=== PATIENT | female | born 1935 | race Caucasian/White ===

== ENCOUNTER 2017-11-29 12:12 | Observation (INO) ==
[2017-11-29] MEDS ORDERED: Ipratropium/Albuterol Neb 3 ML IH ONE (12:44)
[2017-11-29] MEDS ORDERED: Benzonatate 100 MG CAPSULE PO STA (12:45)
--- NOTE | 2017-11-29 12:46 | Emergency Department Note ---
Disposition Clinical Impression: CHF (congestive heart failure) Qualifiers: Heart failure type: diastolic Heart failure chronicity: acute Qualified Code(s) : I50.31 - Acute diastolic (congestive) heart failure Disposition: Admitted As Inpatient Time of Disposition: 14:00 (Dr Frazier) SOB HPI - General Chief Complaint: ED General Medical Stated Complaint: Shortness of breath, throat hurts Time Seen by Provider: 11/29/17 12:29 Source: patient Mode of arrival: ambulatory Limitations: no limitations Nursing Notes Reviewed: Yes Vital Signs Reviewed: Yes - History of Present Illness Pt Subjective Complaint: shortness of breath Onset (ago): day(s) (3) Context: occurred during exertion Severity: moderate Consistency/Duration: gradually worsening Improves with: rest Worsens with: exertion, movement, coughing Known history of: congestive heart failure (remote) Associated symptoms: Reports: fever, cough, wheezing, sputum production. Denies : chest pain, pain with inspiration, orthopnea, lower extremity pain, polyuria, polydipsia, parasthesias, palpitations, hemoptysis, diaphoresis, nausea/vomiting , syncope, abdominal pain, rash, sense of impending doom Treatment prior to arrival: none Cough present: Yes Cough Description: Involuntary Cough Frequency: Intermittent Sputum production: Yes Sputum Amount: Scant Sputum Color: White, Yellow, Green - Related Data Home oxygen amount: none Home Medications Medication Instructions Recorded Confirmed Ascorbate Calcium [Vitamin C] 500 mg PO AD 04/30/17 11/29/17 Aspirin [Lo-Dose Aspirin EC] 81 mg PO DAILY 04/30/17 11/29/17 Atorvastatin [Lipitor] 40 mg PO DAILY 04/30/17 11/29/17 Estrogens, Conjugated [Premarin] 0.9 mg PO AD 04/30/17 11/29/17 Gabapentin [Neurontin] 300 mg PO TID 04/30/17 11/29/17 Irbesartan [Avapro] 150 mg PO DAILY 04/30/17 11/29/17 Levothyroxine [Synthroid] 50 mcg PO DAILY 04/30/17 11/29/17 Metoprolol [Lopressor] 20 mg PO BID 04/30/17 09/03/17 Multivit-Min/FA/Lycopen/Lutein 1 each PO DAILY 04/30/17 11/29/17 [Centrum Silver Tablet] Omeprazole [PriLOSEC] 40 mg PO DAILY 04/30/17 09/03/17 Turm/Ging/Curtis/Yuc/Huy/Elvira/Hor 1 each PO DAILY 04/30/17 11/29/17 [Tumersaid Tablet] predniSONE [PredniSONE] 10 mg PO DAILY 04/30/17 11/29/17 Furosemide [Lasix] 20 mg PO DAILY 11/29/17 11/29/17 Pantoprazole Sodium [Pantoprazole 40 mg PO DAILY 11/29/17 11/29/17 Sodium] Previous Rx's Medication Instructions Recorded HYDROcodone/Acet 5/325 mg [[place] 1 tab PO Q6H #10 tab 04/30/17 5-325 mg] Allergies Allergy/AdvReac Type Severity Reaction Status Date / Time latex AdvReac See Verified 09/03/17 10:49 Comments Bandaids AdvReac Rash Uncoded 09/03/17 10:49 All systems ED: reviewed and negative except as stated. Review of Systems: As Per HPI Past Medical History - Past Medical History Medical history: Reports: GERD, hyperlipidemia, hypertension, myocardial infarction, thyroid disease Psychiatric history: Reports: no psych history - Social History Smoking Status: Former smoker Smokeless Tobacco Status: No Alcohol use: Reports: none Drug use: Reports: none Physical Exam - General Limitations: no limitations General appearance: alert - Head Head exam: atraumatic, normocephalic, normal inspection - Eye Eye exam: Present: normal appearance, PERRL, EOMI - ENT ENT exam: normal exam, normal oropharynx, mucous membranes moist - Neck Neck exam: Present: normal inspection, full ROM, trachea midline - Expanded Neck Exam Neck exam focused ED: Absent: JVD, carotid bruit - Chest Chest inspection: Present: normal inspection, symmetric chest wall rise - Respiratory Respiratory exam: Present: prolonged expiratory phase. Absent: wheezes - Expanded Respiratory Exam Location: wheezes: Lower, Right, Left - Cardiovascular Cardiovascular exam: Present: regular rate, normal rhythm, normal heart sounds - Abdominal Exam Abdominal exam: Present: soft, Non-Tender. Absent: tenderness, distention, guarding, rebound, rigidity - Extremities Exam Extremities exam: Present: normal inspection, full ROM, pedal edema. Absent: tenderness - Neurological Exam Neurological exam: Present: alert, oriented X3 - Psychiatric Psychiatric exam: Present: normal affect, normal mood - Skin Skin exam: Present: warm, dry, intact, normal color Course Vital Signs Temperature 98.4 F 11/29/17 12:13 Pulse Rate 92 11/29/17 12:13 Respiratory Rate 18 11/29/17 12:13 Blood Pressure 151/106 11/29/17 12:13 O2 Sat by Pulse Oximetry 89 11/29/17 12:13 Temperature 99.1 F 11/30/17 06:51 Pulse Rate 89 11/30/17 06:51 Respiratory Rate 16 11/30/17 06:51 Blood Pressure 144/75 11/30/17 06:51 O2 Sat by Pulse Oximetry 93 11/30/17 06:51 Oxygen Delivery Oxygen Delivery Room Air Shortness of Breath/Dyspnea - Differential Diagnosis Likely: acute exacerbation of chronic obstructive airways disease, congestive heart failure, pneumonia. Unlikely: asthma with exacerbation, pulmonary embolism, pneumothorax - Medical Records Medical records reviewed: Yes I reviewed the patient's medical records. - Lab Data Lab results reviewed: Yes I reviewed the patient's lab results. Result diagrams: 11/30/17 05:15 11/30/17 05:15 Lab Results 11/29/17 11/29/17 11/29/17 Range/Units 12:51 12:51 12:51 WBC 8.4 (4.3-11.1) K/mcL RBC 3.95 (3.82-4.97) M/mcL Hgb 13.1 (11.5-15.4) g/dL Hct 40.2 (35.3-44.9) % MCV 101.8 H (83.0-100.0) fL MCH 33.2 (28.0-33.3) pg MCHC 32.6 (31.6-35.5) g/dL RDW 14.2 (11.5-14.5) % Plt Count 147 (140-400) K/mcL MPV 10.9 (9.4-12.4) fL Immature Gran % 0.6 (0-4) % Seg Neutrophils % 82.1 % Lymphocytes % 6.5 % Monocytes % 8.5 % Eosinophils % 1.8 % Basophils % 0.5 % Neutrophils # 6.9 (1.6-8.9) K/mcL Lymphocytes # 0.6 (0.6-4.6) K/mcL Monocytes # 0.7 (0.0-1.3) K/mcL Eosinophils # 0.2 (0.0-0.6) K/mcL Basophils # 0.0 (0.0-0.2) K/mcL Sodium 138 (136-145) mEq/L Potassium 4.0 (3.5-5.1) mEq/L Chloride 101 (98-107) mEq/L Carbon Dioxide 30 H (23-29) mEq/L BUN 14 (8-23) mg/dL Creatinine 0.75 (0.60-1.20) mg/dL Est GFR ( Amer) > 60 (> 60) Est GFR (Non-Af Amer) > 60 (> 60) BUN/Creatinine Ratio 19 (6-26) Glucose 184 H (70-105) mg/dL Calculated Osmolality 291 (280-300) Calcium 8.2 L (8.6-10.3) mg/dL Magnesium (1.6-2.6) mg/dL Troponin I 0.03 (< 0.04) ng/mL B-Natriuretic Peptide 735 H (Less than 100) pg/mL TSH (0.340-5.600) mcIU/mL 11/29/17 Range/Units 12:53 WBC (4.3-11.1) K/mcL RBC (3.82-4.97) M/mcL Hgb (11.5-15.4) g/dL Hct (35.3-44.9) % MCV (83.0-100.0) fL MCH (28.0-33.3) pg MCHC (31.6-35.5) g/dL RDW (11.5-14.5) % Plt Count (140-400) K/mcL MPV (9.4-12.4) fL Immature Gran % (0-4) % Seg Neutrophils % % Lymphocytes % % Monocytes % % Eosinophils % % Basophils % % Neutrophils # (1.6-8.9) K/mcL Lymphocytes # (0.6-4.6) K/mcL Monocytes # (0.0-1.3) K/mcL Eosinophils # (0.0-0.6) K/mcL Basophils # (0.0-0.2) K/mcL Sodium (136-145) mEq/L Potassium (3.5-5.1) mEq/L Chloride (98-107) mEq/L Carbon Dioxide (23-29) mEq/L BUN (8-23) mg/dL Creatinine (0.60-1.20) mg/dL Est GFR ( Amer) (> 60) Est GFR (Non-Af Amer) (> 60) BUN/Creatinine Ratio (6-26) Glucose (70-105) mg/dL Calculated Osmolality (280-300) Calcium (8.6-10.3) mg/dL Magnesium 1.7 (1.6-2.6) mg/dL Troponin I (< 0.04) ng/mL B-Natriuretic Peptide (Less than 100) pg/mL TSH 1.877 (0.340-5.600) mcIU/mL - Radiology Data Radiology results reviewed: Yes I reviewed the patient's radiology results. Chest X-Ray 11/29/17 12:44 IMPRESSION: Mild linear atelectasis versus scar in the right base. No acute process or significant interval change. D/ / Yuli Morales MD / Yuli oMrales MD Interpreting Provider: Yuli Morales MD - EKG Data Rate: Reports: normal Rhythm: Reports: NSR [place]/QRS: Reports: normal Interpretation: Reports: normal EKG, nonspecific ST-T wave changes
[2017-11-29 12:59] LABS: Basophils % 0.5 %; Eosinophils # 0.2 K/mcL (0.0-0.6); Eosinophils % 1.8 %; Hematocrit 40.2 % (35.3-44.9); Hemoglobin 13.1 g/dL (11.5-15.4); Immature Granulocytes % 0.6 % (0-4); Lymphocytes # 0.6 K/mcL (0.6-4.6); Lymphocytes % 6.5 %; Mean Corpuscular HGB Conc 32.6 g/dL (31.6-35.5); Mean Corpuscular Hemoglobin 33.2 pg (28.0-33.3); Mean Corpuscular Volume 101.8 fL (83.0-100.0); Mean Platelet Volume 10.9 fL (9.4-12.4); Monocytes # 0.7 K/mcL (0.0-1.3); Monocytes % 8.5 %; Neutrophils # 6.9 K/mcL (1.6-8.9); Platelet Count 147 K/mcL (140-400); Red Blood Count 3.95 M/mcL (3.82-4.97); Red Cell Distribution Width 14.2 % (11.5-14.5); Segmented Neutrophils % 82.1 %
[2017-11-29 13:14] LABS: BUN/Creatinine Ratio 19 (6-26); Blood Urea Nitrogen 14 mg/dL (8-23); Calcium 8.2 mg/dL (8.6-10.3); Carbon Dioxide 30 mEq/L (23-29); Chloride 101 mEq/L (98-107); Glucose 184 mg/dL (70-105); Osmolality,Calculated 291 (280-300); Sodium 138 mEq/L (136-145); eGFR For Non-African Americans > 60 (> 60)
[2017-11-29 13:15] LABS: Magnesium 1.7 mg/dL (1.6-2.6)
[2017-11-29 13:17] LABS: Troponin I 0.03 ng/mL (< 0.04)
[2017-11-29 13:32] LABS: Thyroid Stimulating Hormone 1.877 mcIU/mL (0.340-5.600)
[2017-11-29] MEDS ORDERED: cefTRIAXone 2,000 MG in 0.9 % Sodium Chloride Mini Bag 100 ML IVPB ONE (14:02)
[2017-11-29] MEDS ORDERED: Ketorolac 30 MG/ML VIAL IVP PRN (15:25)
[2017-11-29] MEDS ORDERED: Ondansetron 4 MG/2 ML VIAL IVP PRN (15:25)
[2017-11-29] MEDS ORDERED: *HR* HYDROcodone/Acet 5/325 mg TABLET PO SCH (15:25)
[2017-11-29] MEDS ORDERED: Ibuprofen 400 MG TABLET PO PRN (15:25)
[2017-11-29] MEDS ORDERED: NON-FORMULARY MEDICATION 1 EACH EACH (Ascorbate Calcium [Vitamin C] 500 MG) PO SCH (15:25)
[2017-11-29] MEDS ORDERED: Acetaminophen 325 MG TABLET PO PRN (15:25)
[2017-11-29] MEDS ORDERED: Naloxone 0.4 MG/ML INJ IVP PRN (15:25)
--- NOTE | 2017-11-29 15:40 | Electrocardiograph Report ---
[address] [address] Test Date: 2017-11-29 Pat Name: Ronna Nguyen Department: [id number] Room: [facility] Gender: F String Top Sealer: [id number] : 1935 Requested By: Adarsh Montes De Oca Order Number: [id number] Reading MD: Monroe Quevedo Measurements Intervals [place] Rate: 80 P: [place]: 0 QRS: 75 QRSD: 86 T: 115 QT: 391 QTc: 427 Interpretive Statements SINUS RHYTHM, PACS NONSPECIFIC T-WAVE ABNORMALITY ABNORMAL RHYTHM ECG Electronically Signed On 11-29-2017 15:38:55 EDT by Monroe Quevedo
--- NOTE | 2017-11-29 16:08 | Internal Med History&Physical ---
Date of Encounter: 11/29/17 Time of Encounter: 15:35 Assessment and Plan (1) Dyspnea Current visit: Yes Status: Acute Suspect multifactorial etiology with acute bronchitis and underlying diastolic heart failure. Will give IV diuretic and increase dose of metoprolol. Continue Avapro. Qualifiers: Dyspnea type: shortness of breath Qualified Code(s): R06.02 - Shortness of breath; R06.00 - Dyspnea, unspecified; R06.01 - Orthopnea (2) Hypertension Current visit: Yes Status: Chronic Continue Lopressor at higher dose. Continue Avapro. Qualifiers: Hypertension type: essential hypertension Qualified Code(s): I10 - Essential (primary) hypertension (3) Temporal arteritis Current visit: Yes Status: Acute Continue prednisone (4) Peripheral neuropathy Current visit: Yes Status: Acute TSH was normal in emergency room. Check B12 and folate levels in a.m. Qualifiers: Peripheral neuropathy type: polyneuropathy, unspecified Qualified Code(s): G62.9 - Polyneuropathy, unspecified (5) Hypothyroidism Current visit: Yes Status: Chronic TSH was normal at 1.877. Continue present dose Synthroid. Qualifiers: Hypothyroidism type: unspecified Qualified Code(s): E03.9 - Hypothyroidism , unspecified (6) Hyperlipidemia Current visit: Yes Status: Chronic Continue atorvastatin. Qualifiers: Hyperlipidemia type: unspecified Qualified Code(s): E78.5 - Hyperlipidemia , unspecified (7) Macrocytosis Current visit: Yes Status: Acute MCV was normal at 94.8 on 06/11/2017. Will check LFTs, TSH, and folate levels in a.m. TSH was normal on today's labs. Internal Medicine - H&P: HPI Chief complaint: Dyspnea Admitted From: Emergency Dept Plans for Post Hospital Care: Home History of present illness: Ms. Nguyen is a 82 year old female who came to emergency room stating she had onset of sore throat 11/26/2017 with gradual dyspnea. She reports cough productive of green/yellow sputum. Denies vomiting or diarrhea. When she did not improve she came to emergency room this morning. She was evaluated and admitted to [facility] floor for ongoing care needs. Her respiratory history is significant for having quit smoking over 40 years ago. She denies diagnosis of COPD or chronic lung disease. Past Med Surg Social Fam HX - Past Medical History Medical history: GERD, hyperlipidemia, hypertension, myocardial infarction, thyroid disease Psychiatric history: no psych history - Social History Smoking Status: Former smoker Smokeless Tobacco Status: No Alcohol use: none Drug use: none Internal Medicine - H&P: Meds Ascorbate Calcium [Vitamin C] 500 mg PO AD 04/30/17 [History] Aspirin [Lo-Dose Aspirin EC] 81 mg PO DAILY 04/30/17 [History] Atorvastatin [Lipitor] 40 mg PO DAILY 04/30/17 [History] Estrogens, Conjugated [Premarin] 0.9 mg PO AD 04/30/17 [History] Gabapentin [Neurontin] 300 mg PO TID 04/30/17 [History] HYDROcodone/Acet 5/325 mg [[place] 5-325 mg] 1 tab PO Q6H #10 tab 04/30/17 [Rx] Irbesartan [Avapro] 150 mg PO DAILY 04/30/17 [History] Levothyroxine [Synthroid] 50 mcg PO DAILY 04/30/17 [History] Metoprolol [Lopressor] 20 mg PO BID 04/30/17 [History] Multivit-Min/FA/Lycopen/Lutein [Centrum Silver Tablet] 1 each PO DAILY 04/30/17 [History] Omeprazole [PriLOSEC] 40 mg PO DAILY 04/30/17 [History] Turm/Ging/Curtis/Yuc/Huy/Elvira/Hor [Tumersaid Tablet] 1 each PO DAILY 04/30/17 [ History] predniSONE [PredniSONE] 10 mg PO DAILY 04/30/17 [History] Furosemide [Lasix] 20 mg PO DAILY 11/29/17 [History] Pantoprazole Sodium [Pantoprazole Sodium] 40 mg PO DAILY 11/29/17 [History] 3 Allergy/AdvReac Type Severity Reaction Status Date / Time latex AdvReac See Verified 09/03/17 10:49 Comments Bandaids AdvReac Rash Uncoded 09/03/17 10:49 All Systems PM: A 10-system review of systems was performed and is negative for pertinent findings except as documented above in the HPI. Review of systems: Gen.: She states her weight has been stable the past few months Cardiovascular: She has history of hypertension and claims SD April 2015. She has a diagnosis of temporal arteritis and is on prednisone. Dose was decreased approximately one year ago from 20 mg daily to 10 mg daily. She reports DVT over 30 years ago without recurrence. She denies pulmonary embolus. Echocardiogram 10/01/2017 showed LVEF of 60% with reported mild LV diastolic dysfunction. The E/A ratio was 0.8. There was mild to moderate mitral regurgitation and tricuspid regurgitation. There was mild pulmonary hypertension with estimated RVSP 37 mmHg. There was asymmetric basal septal hypertrophy of 1.50 cm without LVOT obstruction. Respiratory: As per history of present illness GI: She has had cholecystectomy. She has GERD. She denies disorders of her liver or exocrine pancreas : She denies hematuria dysuria or kidney stones Neurologic: She denies large distribution strokes or seizures. She has peripheral neuropathy. Endocrine: She denies diabetes. She has hypothyroidism and hyperlipidemia. Hematology/oncology: She denies blood disorders cancers or anemia. Psychiatric: She denies anxiety depression or other mental health issues. [place] skeletal: She has DJD but denies gout or other bone joint or muscle disorders. - Constitutional Vitals: Temp Pulse Resp BP Pulse Ox 98.4 F 92 21 153/85 90 11/29/17 12:33 11/29/17 14:37 11/29/17 14:37 11/29/17 14:37 11/29/17 14:37 Exam: Gen.: She is a well-developed overweight female lying in bed who appears slightly dyspneic. HEENT: Head is atraumatic and normocephalic. Eyes: EOMI. There is no scleral icterus. Mouth: Mucosa is moist. Neck: Supple and nontender. There is no thyromegaly or adenopathy noted. Heart: Regular without murmurs gallops or ectopics Lungs: No wheezes or crackles are heard. Abdomen: Soft and nontender. No masses or guarding are noted. Extremities: She has trace to 1+ pitting edema bilaterally of the dorsal feet and lower anterior shins. She has slight woody edema present also. Neurologic: Mental status: She is talkative and a good historian. Cranial nerves: Smile is symmetric. Forehead wrinkles bilaterally. Tongue protrudes midline. EOMI. Motor: There is no pronator drift. Cerebellar: Finger to nose is intact bilaterally. Skin: Warm and dry Internal Med - H&P Results - Labs CBC & Chem 7: 11/29/17 12:51 11/29/17 12:51
[2017-11-29] MEDS ORDERED: Furosemide 40 MG in 0.9 % Sodium Chloride 50 ML IVPB ONE (16:30)
[2017-11-29] MEDS: Gabapentin 300 MG CAPSULE PO SCH ×2 (16:54→21:11)
[2017-11-29] MEDS ORDERED: *HR* HYDROcodone/Acet 5/325 mg TABLET PO PRN (19:10)
[2017-11-29] MEDS: Budesonide/Formoterol 160/4.5 MDI IH SCH ×2 (21:37)
[2017-11-30 06:20] LABS: Basophils % 0.4 %; Eosinophils # 0.2 K/mcL (0.0-0.6); Eosinophils % 3.2 %; Hematocrit 40.8 % (35.3-44.9); Hemoglobin 13.3 g/dL (11.5-15.4); Immature Granulocytes % 0.4 % (0-4); Lymphocytes # 1.3 K/mcL (0.6-4.6); Lymphocytes % 18.3 %; Mean Corpuscular HGB Conc 32.6 g/dL (31.6-35.5); Mean Corpuscular Hemoglobin 32.9 pg (28.0-33.3); Mean Platelet Volume 11.6 fL (9.4-12.4); Monocytes # 0.8 K/mcL (0.0-1.3); Monocytes % 11.9 %; Neutrophils # 4.5 K/mcL (1.6-8.9); Nucleated Red Blood Cells 0.3 /100 WBC (0); Platelet Count 124 K/mcL (140-400); Red Blood Count 4.04 M/mcL (3.82-4.97); Red Cell Distribution Width 14.2 % (11.5-14.5); Segmented Neutrophils % 65.8 %
[2017-11-30 06:30] LABS: Alanine Aminotransferase 20 Units/L (7-52); Albumin 3.4 g/dL (3.5-5.7); Albumin/Globulin Ratio 1.5 (1.1-2.2); Alkaline Phosphatase 49 Units/L (34-104); Aspartate Amino Transferase 19 Units/L (13-39); BUN/Creatinine Ratio 14 (6-26); Bilirubin,Total 0.5 mg/dL (0.3-1.0); Blood Urea Nitrogen 10 mg/dL (8-23); Calcium 8.2 mg/dL (8.6-10.3); Carbon Dioxide 32 mEq/L (23-29); Chloride 101 mEq/L (98-107); Globulin 2.3 g/dL (2.4-3.5); Glucose 106 mg/dL (70-105); Osmolality,Calculated 289 (280-300); Potassium 3.6 mEq/L (3.5-5.1); Sodium 140 mEq/L (136-145); Total Protein 5.7 g/dL (6.4-8.9); eGFR For Non-African Americans > 60 (> 60)
[2017-11-30 06:53] VITALS: BP 144/75
[2017-11-30] MEDS ORDERED: Aspirin Enteric Coated 81 MG Tablet PO SCH (09:00)
[2017-11-30] MEDS ORDERED: predniSONE 10 MG TABLET PO SCH (09:00)
[2017-11-30] MEDS ORDERED: Multivit/Ca/Min/Fe/FA 1 TAB TABLET PO SCH (09:00)
[2017-11-30] MEDS ORDERED: Furosemide 20 MG TABLET PO SCH ×2 (09:00)
[2017-11-30 09:23] LABS: Vitamin B12 420 pg/mL (250-1100)
[2017-11-30 09:34] LABS: Folate > 22.3 ng/mL (3.0-16.0)
[2017-11-30] MEDS ORDERED: Albuterol 2.5 MG/3 ML NEBULIZER IH PRN (09:41)
[2017-11-30] MEDS: Gabapentin 300 MG CAPSULE PO SCH (09:50)
--- NOTE | 2017-11-30 10:08 | Discharge Summary ---
Date of Encounter: 11/30/17 Time of Encounter: 10:00 - Discharge Diagnosis (1) Acute bronchitis Priority: Primary Status: Acute Qualifiers: Bronchitis organism: unspecified organism Qualified Code(s): J20.9 - Acute bronchitis, unspecified (2) CHF (congestive heart failure) Priority: Secondary Status: Chronic Qualifiers: Heart failure type: diastolic Heart failure chronicity: chronic Qualified Code(s): I50.32 - Chronic diastolic (congestive) heart failure (3) Hypertension Priority: Secondary Status: Chronic Qualifiers: Hypertension type: essential hypertension Qualified Code(s): I10 - Essential (primary) hypertension (4) Temporal arteritis Priority: Secondary Status: Chronic (5) Peripheral neuropathy Priority: Secondary Status: Chronic Qualifiers: Peripheral neuropathy type: polyneuropathy, unspecified Qualified Code(s): G62.9 - Polyneuropathy, unspecified (6) Hypothyroidism Priority: Secondary Status: Chronic Qualifiers: Hypothyroidism type: unspecified Qualified Code(s): E03.9 - Hypothyroidism , unspecified (7) Hyperlipidemia Priority: Secondary Status: Chronic Qualifiers: Hyperlipidemia type: unspecified Qualified Code(s): E78.5 - Hyperlipidemia , unspecified (8) Macrocytosis Priority: Secondary Status: Acute Hospital course: Ms. Nguyen is a 82 year old female who came to emergency room stating she had onset of sore throat 11/26/2017 with gradual dyspnea. She reports cough productive of green/yellow sputum. Denies vomiting or diarrhea. When she did not improve she came to emergency room this morning. She was evaluated and admitted to [facility] floor for ongoing care needs. Initial orders were written by the emergency room physician. I saw her on November 29 and performed the history and physical. She was given a dose of Rocephin in emergency room. I did not continue antibiotics since I felt she likely had viral bronchitis. WBC remained normal on November 30 with resolution of left shift. She will remain off antibiotics at discharge. She will continue Symbicort for 5 days at discharge for symptom control. Macrocytosis workup showed B12 420 and folate > 22.3. LFTs were unremarkable. Her PCP can monitor this. She was given higher dose metoprolol and Bumex for evidence of heart failure. BN peptide improved to 536 by November 30. She will continue higher doses of these medications at discharge. On November 30 she was stable for discharge home. She will follow with her PCP Tory Merrill CNP within 1 week. Room air oximetry will be checked on 6 minute walk prior to discharge. - Time Spent with Patient Total time spent providing and/or coordinating discharge services: - Discharge Medications Prescriptions: Budesonide/Formoterol 160/4.5 [Symbicort 160/4.5] 2 puff IH BIDR 5 Days #1 inhaler Furosemide [Lasix] 40 mg PO DAILY #30 tablet Metoprolol [Lopressor] 50 mg PO BID #60 tablet Home Medications: Ascorbate Calcium [Vitamin C] 500 mg PO AD 04/30/17 [History] Aspirin [Lo-Dose Aspirin EC] 81 mg PO DAILY 04/30/17 [History] Atorvastatin [Lipitor] 40 mg PO DAILY 04/30/17 [History] Estrogens, Conjugated [Premarin] 0.9 mg PO AD 04/30/17 [History] Gabapentin [Neurontin] 300 mg PO TID 04/30/17 [History] HYDROcodone/Acet 5/325 mg [[place] 5-325 mg] 1 tab PO Q6H #10 tab 04/30/17 [Rx] Irbesartan [Avapro] 150 mg PO DAILY 04/30/17 [History] Levothyroxine [Synthroid] 50 mcg PO DAILY 04/30/17 [History] Multivit-Min/FA/Lycopen/Lutein [Centrum Silver Tablet] 1 each PO DAILY 04/30/17 [History] Omeprazole [PriLOSEC] 40 mg PO DAILY 04/30/17 [History] Turm/Ging/[place]urtis/Yuc/Huy/Elvira/Hor [Tumersaid Tablet] 1 each PO DAILY 04/30/17 [ History] predniSONE [PredniSONE] 10 mg PO DAILY 04/30/17 [History] Pantoprazole Sodium 40 mg PO DAILY 11/29/17 [History] Budesonide/Formoterol 160/4.5 [Symbicort 160/4.5] 2 puff IH BIDR 5 Days #1 inhaler 11/30/17 [Rx] Furosemide [Lasix] 40 mg PO DAILY #30 tablet 11/30/17 [Rx] Metoprolol [Lopressor] 50 mg PO BID #60 tablet 11/30/17 [Rx] Allergies/Adverse Reactions: 3 Allergy/AdvReac Type Severity Reaction Status Date / Time latex AdvReac See Verified 09/03/17 10:49 Comments Bandaids AdvReac Rash Uncoded 09/03/17 10:49 Date of admission: 11/29/17 14:20 Primary care physician: Tory Merrill CNP - Patient Status Disposition: Home, Self-Care Overall status at discharge: patient is progressing back to baseline - Discharge Instructions Follow Up With: Tory Merrill CNP [Primary Care Provider] - 1 week - Diet and Activity Diet: advance to your usual diet
[2017-11-30] MEDS: Budesonide/Formoterol 160/4.5 MDI IH SCH (10:19)
[2017-12-01] MEDS ORDERED: Furosemide 40 MG TABLET PO SCH (09:00)
== END 2017-11-30 12:00 | disposition home or self-care (01) ==
LOC: EMEROOPIK 12:12 → INPPIK 12:12
PROVIDERS: ADMIT Internal Medicine; ATTEND Internal Medicine

== ENCOUNTER 2019-05-22 14:27 | Inpatient (IN) ==
[2019-05-22] MEDS ORDERED: 0.9 % Sodium Chloride 1,000 ML IVC ONE (14:56)
[2019-05-22] MEDS ORDERED: Morphine Sulfate 2 MG/ML SYRINGE IVP ONE (14:56)
[2019-05-22 15:57] LABS: Basophils # 0.1 K/mcL (0.0-0.2); Basophils % 0.6 %; Eosinophils # 0.1 K/mcL (0.0-0.6); Eosinophils % 0.9 %; Hemoglobin 19.5 g/dL (11.5-15.4); Immature Granulocytes % 0.4 % (0-4); Lymphocytes % 7.3 %; Mean Corpuscular HGB Conc 33.8 g/dL (31.6-35.5); Mean Corpuscular Hemoglobin 30.4 pg (28.0-33.3); Mean Platelet Volume 9.8 fL (9.4-12.4); Monocytes % 7.2 %; Neutrophils # 11.8 K/mcL (1.6-8.9); Platelet Count 318 K/mcL (140-400); Red Blood Count 6.41 M/mcL (3.82-4.97); Red Cell Distribution Width 17.7 % (11.5-14.5); Segmented Neutrophils % 83.6 %; White Blood Count 14.1 K/mcL (4.3-11.1)
[2019-05-22 15:58] LABS: Hematocrit 57.7 % (35.3-44.9)
[2019-05-22 16:00] LABS: Alanine Aminotransferase 21 Units/L (7-52); Albumin 3.9 g/dL (3.5-5.7); Albumin/Globulin Ratio 1.1 (1.1-2.2); Alkaline Phosphatase 187 Units/L (34-104); Aspartate Amino Transferase 33 Units/L (13-39); BUN/Creatinine Ratio 41 (6-26); Bilirubin,Direct 0.5 mg/dL (0.0-0.2); Bilirubin,Indirect 0.7 mg/dL (0.0-1.0); Bilirubin,Total 1.2 mg/dL (0.3-1.0); Blood Urea Nitrogen 36 mg/dL (8-23); Calcium 9.8 mg/dL (8.6-10.3); Carbon Dioxide 29 mEq/L (23-29); Chloride 87 mEq/L (98-107); Globulin 3.6 g/dL (2.4-3.5); Glucose 186 mg/dL (70-105); Lipase 58 Units/L (11-82); Osmolality,Calculated 281 (280-300); Potassium 4.1 mEq/L (3.5-5.1); Sodium 129 mEq/L (136-145); Total Protein 7.5 g/dL (6.4-8.9); eGFR For African Americans > 60 (> 60); eGFR For Non-African Americans > 60 (> 60)
[2019-05-22] MEDS ORDERED: MetroNIDAZOLE 500 MG/100 ML 500 MG/100 ML BAG IVPB ONE (18:13)
[2019-05-22] MEDS ORDERED: levoFLOXacin 750 MG/150 ML 750 MG/150 ML BAG IVPB ONE (18:13)
[2019-05-22] MEDS ORDERED: Ketorolac 15 MG/ML VIAL IVP PRN (18:14)
[2019-05-22] MEDS ORDERED: Ondansetron 4 MG/2 ML VIAL IVP PRN (18:14)
[2019-05-22] MEDS ORDERED: Naloxone 0.4 MG/ML INJ IVP PRN (18:14)
[2019-05-22 18:21] LABS: Bilirubin,Urine Negative (Negative); Blood,Urine Trace-lysed (Negative); Clarity,Urine Cloudy (Clear); Color,Urine Yellow (Yellow); Glucose,Urine (UA) Normal (Normal); Ketones,Urine Negative (Negative); Leukocyte Esterase,Urine Moderate (Negative); Nitrite,Urine Negative (Negative); Protein,Urine Negative (Neg-Trace); Specific Gravity,Urine 1.015 (1.010-1.025); Urobilinogen,Urine Normal (Normal)
[2019-05-22 18:33] LABS: Bacteria,Urine Many per hpf (None-Few); RBC,Urine 0-3 per hpf (0-3); Squamous Epithelial Cell,Urine Few per lpf (None-Few); WBC,Urine TNTC per hpf (0-3)
[2019-05-22] MEDS: Ringers Solution, Lactated 1,000 ML IVC SCH (23:03)
[2019-05-22] MEDS: *HR* Heparin 5,000 UNIT/ML VIAL SQ SCH (23:04)
[2019-05-23] MEDS ORDERED: MetroNIDAZOLE 500 MG/100 ML 500 MG/100 ML BAG IVPB SCH
[2019-05-23] MEDS: MetroNIDAZOLE 500 MG/100 ML 500 MG/100 ML BAG IVPB SCH ×3 (03:58→20:06)
[2019-05-23] MEDS: Gabapentin 300 MG CAPSULE PO SCH ×4 (03:58→20:03)
[2019-05-23 06:38] LABS: Basophils # 0.1 K/mcL (0.0-0.2); Basophils % 0.5 %; Eosinophils # 0.3 K/mcL (0.0-0.6); Eosinophils % 2.3 %; Hematocrit 51.8 % (35.3-44.9); Hemoglobin 17.8 g/dL (11.5-15.4); Immature Granulocytes % 0.4 % (0-4); Lymphocytes # 1.1 K/mcL (0.6-4.6); Lymphocytes % 8.8 %; Mean Corpuscular HGB Conc 34.4 g/dL (31.6-35.5); Mean Corpuscular Hemoglobin 30.7 pg (28.0-33.3); Mean Corpuscular Volume 89.3 fL (83.0-100.0); Monocytes # 1.2 K/mcL (0.0-1.3); Monocytes % 9.1 %; Neutrophils # 10.1 K/mcL (1.6-8.9); Platelet Count 285 K/mcL (140-400); Red Cell Distribution Width 16.9 % (11.5-14.5); Segmented Neutrophils % 78.9 %; White Blood Count 12.8 K/mcL (4.3-11.1)
[2019-05-23 06:59] LABS: BUN/Creatinine Ratio 32 (6-26); Blood Urea Nitrogen 23 mg/dL (8-23); Carbon Dioxide 31 mEq/L (23-29); Chloride 95 mEq/L (98-107); Glucose 93 mg/dL (70-105); Osmolality,Calculated 283 (280-300); Potassium 3.4 mEq/L (3.5-5.1); Sodium 135 mEq/L (136-145); eGFR For African Americans > 60 (> 60); eGFR For Non-African Americans > 60 (> 60)
[2019-05-23] MEDS: Ringers Solution, Lactated 1,000 ML IVC SCH (09:03)
[2019-05-23] MEDS: *HR* Heparin 5,000 UNIT/ML VIAL SQ SCH ×2 (09:04→17:03)
[2019-05-23] MEDS: cefTRIAXone 1,000 MG in Water for inj. (sterile) 10 ML IVP SCH (19:59)
[2019-05-23 21:31] LABS: Acinetobacter baumannii by PCR Not Detected (Not Detect); Candida albicans by PCR Not Detected (Not Detect); Candida glabrata by PCR Not Detected (Not Detect); Candida krusei by PCR Not Detected (Not Detect); Candida parapsilosis by PCR Not Detected (Not Detect); Candida tropicalis by PCR Not Detected (Not Detect); Enterobacter cloacae Cmplx PCR Not Detected (Not Detect); Enterobacteriaceae by PCR Not Detected (Not Detect); Enterococcus by PCR Not Detected (Not Detect); Escherichia coli by PCR Not Detected (Not Detect); Klebsiella oxytoca by PCR Not Detected (Not Detect); Klebsiella pneumoniae by PCR Not Detected (Not Detect); Proteus by PCR Not Detected (Not Detect); Pseudomonas aeruginosa by PCR Not Detected (Not Detect); Serratia marcescens by PCR Not Detected (Not Detect); Staphylococcus aureus by PCR Not Detected (Not Detect); Staphylococcus by PCR DETECTED (Not Detect); Streptococcus agalactiae(B)PCR Not Detected (Not Detect); Streptococcus by PCR Not Detected (Not Detect); Streptococcus pneumoniae PCR Not Detected (Not Detect); Streptococcus pyogenes (A) PCR Not Detected (Not Detect); blaKPC Carbapenem-Resist Gene Not Detected (Not Detect); mecA Methicillin-Resist Gene Not Detected (Not Detect); vanA/B Vancomycin-Resist Genes Not Detected (Not Detect)
[2019-05-24] MEDS: *HR* Heparin 5,000 UNIT/ML VIAL SQ SCH ×4 (00:06→23:32)
[2019-05-24] MEDS: MetroNIDAZOLE 500 MG/100 ML 500 MG/100 ML BAG IVPB SCH ×3 (03:41→19:52)
[2019-05-24 06:01] LABS: Hematocrit 49.2 % (35.3-44.9); Hemoglobin 16.5 g/dL (11.5-15.4); Mean Corpuscular HGB Conc 33.5 g/dL (31.6-35.5); Mean Corpuscular Hemoglobin 30.4 pg (28.0-33.3); Mean Corpuscular Volume 90.6 fL (83.0-100.0); Mean Platelet Volume 10.1 fL (9.4-12.4); Platelet Count 253 K/mcL (140-400); Red Blood Count 5.43 M/mcL (3.82-4.97); Red Cell Distribution Width 16.6 % (11.5-14.5); White Blood Count 9.6 K/mcL (4.3-11.1)
[2019-05-24 06:34] LABS: BUN/Creatinine Ratio 20 (6-26); Blood Urea Nitrogen 12 mg/dL (8-23); Calcium 8.6 mg/dL (8.6-10.3); Carbon Dioxide 25 mEq/L (23-29); Chloride 101 mEq/L (98-107); Glucose 92 mg/dL (70-105); Osmolality,Calculated 283 (280-300); Potassium 3.2 mEq/L (3.5-5.1); Sodium 137 mEq/L (136-145); eGFR For African Americans > 60 (> 60); eGFR For Non-African Americans > 60 (> 60)
[2019-05-24] MEDS: Gabapentin 300 MG CAPSULE PO SCH ×3 (08:23→19:51)
[2019-05-24] MEDS ORDERED: Nitroglycerin 0.4 MG TAB.SUBL SL PRN (10:50)
[2019-05-24] MEDS: cefTRIAXone 1,000 MG in Water for inj. (sterile) 10 ML IVP SCH (19:52)
[2019-05-25] MEDS ORDERED: Melatonin 3 MG TABLET PO ONE (01:41)
[2019-05-25] MEDS: MetroNIDAZOLE 500 MG/100 ML 500 MG/100 ML BAG IVPB SCH ×2 (03:56→12:44)
[2019-05-25] MEDS ORDERED: Levothyroxine 25 MCG TABLET PO SCH (06:30)
[2019-05-25] MEDS: *HR* Heparin 5,000 UNIT/ML VIAL SQ SCH (07:57)
[2019-05-25] MEDS: Gabapentin 300 MG CAPSULE PO SCH (07:58)
[2019-05-25 08:01] LABS: Hematocrit 49.9 % (35.3-44.9); Hemoglobin 16.8 g/dL (11.5-15.4); Mean Corpuscular HGB Conc 33.7 g/dL (31.6-35.5); Mean Corpuscular Hemoglobin 30.4 pg (28.0-33.3); Mean Corpuscular Volume 90.4 fL (83.0-100.0); Mean Platelet Volume 10.5 fL (9.4-12.4); Platelet Count 247 K/mcL (140-400); Red Blood Count 5.52 M/mcL (3.82-4.97); Red Cell Distribution Width 16.5 % (11.5-14.5); White Blood Count 8.7 K/mcL (4.3-11.1)
[2019-05-25 08:19] LABS: BUN/Creatinine Ratio 18 (6-26); Blood Urea Nitrogen 11 mg/dL (8-23); Calcium 8.7 mg/dL (8.6-10.3); Carbon Dioxide 25 mEq/L (23-29); Chloride 102 mEq/L (98-107); Glucose 101 mg/dL (70-105); Osmolality,Calculated 284 (280-300); Potassium 3.5 mEq/L (3.5-5.1); Sodium 137 mEq/L (136-145); eGFR For African Americans > 60 (> 60); eGFR For Non-African Americans > 60 (> 60)
[2019-05-25] MEDS ORDERED: Multivit/Ca/Min/Fe/FA 1 TAB TABLET PO SCH (09:00)
[2019-05-25] MEDS ORDERED: Cyanocobalamin (B-12) 1,000 MCG TABLET PO SCH (09:00)
[2019-05-25] MEDS ORDERED: Isosorbide MONOnitrate (24 HR) 60 MG TAB.ER.24H PO SCH (09:00)
[2019-05-25 09:14] VITALS: BP 141/81
[2019-05-25] MEDS ORDERED: Ketorolac 30 MG/ML VIAL IVP PRN (09:45)
== END 2019-05-25 15:08 | disposition home or self-care (01) | DRG 392 ==
LOC: INPPIK 14:27 → EMEROOPIK 14:27 → INPPIK 20:12
PROVIDERS: ADMIT Family Medicine; ATTEND Family Medicine